=== PATIENT | female | born 1980 | race Caucasian/White ===

== ENCOUNTER 2020-03-12 17:54 | Emergency (ER) | payer SELFPAY ==
--- NOTE | 2020-03-12 20:32 | ED_ITS ---
HPI - Abdominal Pain General Chief Complaint: Abdominal Pain Stated Complaint: ?Kidney Stones Time Seen by Provider: 03/12/20 20:21 Source: patient Mode of arrival: ambulatory History of Present Illness HPI narrative: patient states for the last several weeks has been having right flank pain. Increased pain today and could not tolerating came into the emergency department. Patient states today started with nausea and vomiting. No fevers. No diarrhea. Denies trauma. Denies vaginal discharge. States of urine hesitancy MD elicited complaint: flank pain ( right-sided) Pertinent past history: kidney stones Pain Consistency: constant Severity: moderate Pain scale (0-10): 6 Quality: stabbing and aching Radiation: suprapubic Exacerbating factors: nothing Relieving factors: nothing Treatments prior to arrival: NSAIDs Related Data Previous Rx's Medication Instructions Recorded tamsulosin [Flomax] 0.4 mg PO DAILY 3 Days #3 cap 03/12/20 tramadol 25 mg PO Q6H PRN #10 tab 03/12/20 Allergies Allergy/AdvReac Type Severity Reaction Status Date / Time No Known Allergies Allergy Verified 03/12/20 20:26 Review of Systems Review of Systems Constitutional : No Weight loss, No Fever, No Chills, No Night Sweats, No Fatigue, No Malaise ENT/Mouth : No Hearing loss, No Ear Pain, No Nasal Congestion, No Sinus Pain, No Hoarseness, No sore throat, No Rhinorrhea, No Swallowing Difficulty Eyes: No Eye Pain, No Swelling, No Redness, No Foreign Body, No Discharge, No Vision Changes Cardiovascular : No Chest Pain, No SOB, No Dyspnea on Exertion, No Orthopnea, No Edema, No Palpitations Respiratory : No Cough, No Sputum, No Wheezing, No Smoke Exposure, No Dyspnea Gastrointestinal : positive for nausea and positive for vomiting No Diarrhea, No Constipation, right lower quadrant and suprapubic abdominal Pain, No Hematochezia, No Melena Genitourinary : no irregular bleeding, No Dysuria, No Urinary Frequency, No Hematuria, No Urinary Incontinence, No Urgency, No Flank Pain, No Urinary Flow Changes, No Hesitancy Musculoskeletal : No joint pain, No Myalgias, right-sided flank pain Skin : No Skin Lesions, No rash Neuro : No Weakness, No Numbness, No Paresthesias, No Loss of Consciousness, No Dizziness, No Headache Psych : No Anxiety/Panic, No Depression, No SI/HI/AH/VH, No Social Issues, Heme/Lymph: No Bruising, No Bleeding,No Lymphadenopathy Endocrine : No Polyuria, No Polydipsia, No Temperature Intolerance Physical Exam Vital Signs and I&O and Narrative: Vital Signs and I&O: Vital Signs Temp 98.6 F 03/12/20 22:00 Pulse 55 03/12/20 22:00 Resp 16 03/12/20 22:00 BP 165/90 H 03/12/20 22:00 Pulse Ox 100 03/12/20 22:00 Intake & Output 03/12/20 03/12/20 03/13/20 06:59 18:59 06:59 Weight 63.957 kg Body Mass Index 27.5 Const: Other: in mild discomfort General: cooperative and healthy appearing Orientation/consciousness: oriented to person HENMT: Head: Yes normal to inspection Eyes: Eyelids: Yes eyelids normal Pupils: Equal, round and reactive pupils present Neck: Neck: Yes normal visual inspection Chest: Chest palpation & inspection: normal inspection of the chest Resp: Effort & Inspection: normal respiratory effort Cardio: Rate: regular rate Heart sounds: no murmurs GI: Other: mild right-sided tenderness. Inspection: Yes normal to inspection Palpation (GI): no hepatosplenomegaly, no hepatomegaly and no splenomegaly Auscultation: normal bowel sounds : General: Yes CVA tenderness ( right-sided) Back/Spine/Pelvis: Back: CVA tenderness ( right-sided), No mass, No erythema and No warmth Back/spine/pelvis image: 1. Skin: General skin exam: no rashes or lesions noted Neuro: General: oriented to person Cranial nerves: Yes Equal, round and re active pupils present Extrem: General: Yes normal to inspection Psych: Appearance: grossly normal Course Reevaluation(s) Reevaluation #1: throughout hospital course patient felt much improved with IV Toradol and IV fluids. I discussed with patient need for follow-up. Patient says that she seen a urologist in the past. I do not think this patient is septic however there is some red cells in her urine which indicates possible renal stone. Patient wants to go home I discussed the patient reasons to follow-up MDM - Abdominal Pain Differential Diagnosis Differential diagnosis: Likely abdominal pain, ovarian cyst and renal colic Medical Records Attestation: I reviewed the patient's medical records. Lab Data Attestation: I reviewed the patient's lab results. Result diagrams: 03/12/20 20:43 03/12/20 20:43 Labs: Lab Results 03/12/20 03/12/20 03/12/20 Range/Units 20:42 20:43 20:43 WBC 9.4 (4.8-10.8) X10*3/uL RBC 3.90 L (4.20-5.50) X10*6/uL Hgb 13.0 (12.0-16.0) g/dl Hct 37.2 (37-47) % MCV 95.4 (80-98) fL MCH 33.3 H (27.0-33.0) pg MCHC 34.9 (31.0-35.0) g/dl RDW 11.8 (11.0-16.0) % Plt Count 246 (160-400) X10*3/uL MPV 10.3 (9.4-12.3) fL Immature Gran % (Auto) 0.3 (0.0-0.4) % Neut % (Auto) 80.7 H (45-73) % Lymph % (Auto) 10.4 L (20-40) % [place] % (Auto) 7.4 (2-11) % Eos % (Auto) 0.9 (0-4) % Baso % (Auto) 0.3 (0-2) % Neut # (Auto) 7.6 (2.0-8.3) X10*3/uL Lymph # (Auto) 1.0 L (1.2-4.9) X10*3/uL [place] # (Auto) 0.7 (0.1-1.2) X10*3/uL Eos # (Auto) 0.1 (0.0-0.4) X10*3/uL Baso # (Auto) 0.0 (0.0-0.2) X10*3/uL Abs Immat Gran (auto) 0.03 (0.00-0.03) X10*3/uL Absolute Nucleated RBC 0.000 (0.0-0.012) X10*3/uL Nucleated RBC % (auto) 0.0 (0.0-0.2) /100WBC Sodium 141 (135-145) mmol/L Potassium 4.1 (3.3-5.1) mmol/l Chloride 106 (96-108) mmol/L Carbon Dioxide 26 (22-29) mmol/L Anion Gap 13 (12-20) BUN 13 (9-16) mg/dL Creatinine 1.02 (0.5-1.4) mg/dL Estim Creat Clear Calc TNP Estimated GFR > 60 Random Glucose 98 (60-115) mg/dL Calcium 9.4 (8.4-10.2) mg/dL Urine Color DARK YELLOW Urine Appearance CLOUDY Urine pH 6.0 (5.0-8.0) Ur Specific [place] >= 1.030 H (1.005-1.025) Urine Protein 2+ H (NEG-TRACE) MG/DL Urine Glucose (UA) NEG (NEG) MG/DL Urine Ketones NEG (NEG) MG/DL Urine Blood 3+ H (NEG) Urine Nitrite NEG (NEG) Ur Leukocyte Esterase NEG (NEG) Urine RBC TNTC H (0) /HPF Urine WBC 0-2 (0-4) /HPF Ur Squamous Epith Cells TRACE /LPF Calcium Oxalate Crystal 1+ /LPF Urine Bacteria NONE /LPF Urine Yeast TRACE /HPF Urine Test NEGATIVE (NEGATIVE) Discharge Plan Discharge Clinical Impression: Calculus of kidney Patient Disposition: Home, Self-Care Instructions: Kidney Stones (ED), Flank Pain (ED) Prescriptions: New tamsulosin [Flomax] 0.4 mg capsule 0.4 mg PO DAILY 3 Days Qty: 3 RF: 0 tramadol 50 mg tablet 25 mg PO Q6H PRN (Reason: pain) Qty: 10 RF: 0 Referrals: Harrison Mcmullen RN [Registered Nurse] - 2 days Interventions: ED Discharge Assessment Last Done: 03/12/20 23:26 Discharge Date/Time: 03/12/20 23:39 [facility] Past Medical History Attestation statement: The following information was validated with the patient. Medical History (Updated 03/13/20 @ 00:01 by Christine Chung) Kidney stone Social History Social History (Updated 03/12/20 @ 20:35 by Frederic Skelton DO) Household Members: Family Alcohol intake: unknown Smoking Status: Unknown if ever smoked Use of substances other than those prescribed or required for medical reasons: No Advance Directives: No Advance Directives Information Provided: Yes
[2020-03-12 20:36] VITALS: BP 159/92; PULSE 63; RESP 16; TEMP 37; O2SAT 100
[2020-03-12 20:51] LABS: MANUAL DIFF FLAG NO
[2020-03-12 20:52] LABS: Basophils Percent Auto 0.3 % (0-2); Eosinophils Absolute Auto 0.1 X10*3/uL (0.0-0.4); Eosinophils Percent Auto 0.9 % (0-4); Hematocrit 37.2 % (37-47); Imm Gran Abs Auto 0.03 X10*3/uL (0.00-0.03); Imm Gran Pct Auto 0.3 % (0.0-0.4); Lymphocytes Percent Auto 10.4 % (20-40); Mean Corpuscular HGB Conc 34.9 g/dl (31.0-35.0); Mean Corpuscular Hemoglobin 33.3 pg (27.0-33.0); Mean Corpuscular Volume 95.4 fL (80-98); Mean Platelet Volume 10.3 fL (9.4-12.3); Monocytes Absolute Auto 0.7 X10*3/uL (0.1-1.2); Monocytes Percent Auto 7.4 % (2-11); Neutrophils Absolute Auto 7.6 X10*3/uL (2.0-8.3); Neutrophils Percent Auto 80.7 % (45-73); Platelet Count 246 X10*3/uL (160-400); Red Cell Distribution Width 11.8 % (11.0-16.0); White Blood Count 9.4 X10*3/uL (4.8-10.8)
[2020-03-12 21:00] LABS: Glucose Urine UA NEG (NEG); Leukocyte Esterase Urine NEG (NEG); Nitrite Urine NEG (NEG); Specific Gravity - Urine >= 1.030 (1.005-1.025); Urine Blood 3+ (NEG); Urine Ketones NEG (NEG); Urine Protein 2+ MG/DL (NEG-TRACE)
[2020-03-12 21:03] LABS: Appearance Urine CLOUDY; Color Urine DARK YELLOW
[2020-03-12 21:04] LABS: UPreg QC Valid YES; Urine Pregnancy NEGATIVE (NEGATIVE)
[2020-03-12 21:09] LABS: RBC Urine TNTC /HPF (0); Squamous Epithelial Cell Urine TRACE /LPF; WBC Urine 0-2 /HPF (0-4)
[2020-03-12 21:10] LABS: Calcium Oxalate Crystals Urine 1+ /LPF
[2020-03-12 21:15] LABS: Anion Gap 13 (12-20); Blood Urea Nitrogen 13 mg/dL (9-16); Calcium 9.4 mg/dL (8.4-10.2); Carbon Dioxide 26 mmol/L (22-29); Chloride 106 mmol/L (96-108); Estimated Glomerular Filt Rate > 60; Glucose Random 98 mg/dL (60-115); Potassium 4.1 mmol/l (3.3-5.1); Sodium 141 mmol/L (135-145)
[2020-03-12] MEDS: Ketorolac Tromethamine 30 MG/ML VIAL IVPUSH (21:38)
[2020-03-12] MEDS: 0.9 % Sodium Chloride 1,000 ML 999 ML IVCONT (21:40)
[2020-03-12 21:42] VITALS: BP 156/90; PULSE 84; RESP 18; TEMP 37.1; O2SAT 99; BMI 27.5
[2020-03-12 22:00] VITALS: BP 165/90; PULSE 55; RESP 16; TEMP 37; O2SAT 100
[2020-03-12] MEDS: Tamsulosin HCL 0.4 MG CAPSULE PO (23:36)
[2020-03-12] MEDS: Fluconazole 150 MG TABLET PO (23:36)
== END 2020-03-12 23:39 | disposition home or self-care (01) ==
PROVIDERS: Emergency Provider Emergency Medicine
DX: N20.0 Calculus of kidney (principal)
CPT/HCPCS: 36415; 80048; 81001; 81003; 81025; 85025; 96361; 96374; 96375; 99284; J1885

== ENCOUNTER 2020-04-26 07:23 | Emergency (ER) | payer SELFPAY ==
[2020-04-26 07:34] VITALS: BP 165/88; PULSE 75; RESP 16; TEMP 36.6; O2SAT 99; BMI 30.2
--- NOTE | 2020-04-26 07:36 | CT_ITS ---
EXAMINATION: CT ABDOMEN AND PELVIS WITHOUT CONTRAST CLINICAL INFORMATION: Right flank pain COMPARISON: None TECHNIQUE: Multidetector volumetric imaging was performed from the superior aspect of the liver through the pubic symphysis. Sagittal and coronal reformatted images were obtained on the technologist's workstation. This CT examination was performed using dose optimization techniques as appropriate, variously including the following: *Automated exposure control *Adjustment of mA and/or kV according to patient size (this includes techniques or standardized protocols for targeted exams where dose is matched to indication/reason for exam; i.e. extremities or head) *Use of iterative reconstruction technique DLP: 490 mGy-cm FINDINGS: LUNG BASES: The visualized lung bases are unremarkable. Elevated right hemidiaphragm. LIVER, GALLBLADDER, AND BILIARY TREE: The liver is normal in size, shape, and attenuation. No focal hepatic lesion or biliary ductal dilatation is present. Small stones are seen layering in the gallbladder lumen. No gallbladder wall thickening or pericholecystic fluid. PANCREAS: Unremarkable. SPLEEN: Unremarkable. ADRENAL GLANDS: Unremarkable. KIDNEYS AND URETERS: The kidneys are normal in size, shape, and attenuation. There is mild right hydroureteronephrosis. There is a 0.4 cm calculus at the right ureterovesicular junction. Multiple bilateral nonobstructing calculi are seen. On the right, there are 2 upper pole calculi measuring 0.1-0.2 cm, 7.5 cm from the posterior axillary line. On the left there are at least 3 calculi at the lower pole measuring 0.2 cm, 6.5 cm from the posterior axillary line. BLADDER: Unremarkable. GASTROINTESTINAL TRACT: The stomach is unremarkable. Normal caliber small bowel. There is no obstruction. No colonic wall thickening or inflammatory changes. No free air or free fluid. Is not definitively seen. No inflammatory changes of the cecum to suggest appendicitis. ABDOMINAL WALL: Rectus diastases. No focal abdominal wall hernia seen. LYMPH NODES: Normal. VASCULAR: Normal caliber aorta. 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 PELVIC VISCERA: The uterus and adnexa are unremarkable. OSSEOUS STRUCTURES: No acute or suspicious osseous abnormality. CT/CT abdomen pelvis wo con IMPRESSION: Mild right hydroureteronephrosis with a 0.4 cm obstructing calculus at the right ureterovesicular junction. Multiple bilateral small nonobstructing renal calculi.
--- NOTE | 2020-04-26 07:46 | ED_ITS ---
HPI - Abdominal Pain General Chief Complaint: Abdominal Pain Stated Complaint: KIDNEY STONES Time Seen by Provider: 04/26/20 07:34 Source: patient Mode of arrival: ambulatory Limitations: no limitations History of Present Illness MD elicited complaint: abdominal pain and flank pain Pertinent past history: kidney stones Onset (ago): unknown (on and off since day did not have insurance so no imaging done) Pain Consistency: intermittent Location: RLQ and R flank Severity: severe Quality: stabbing Radiation: suprapubic Migration to: no migration Exacerbating factors: nothing Relieving factors: nothing Associated symptoms: nausea Related Data Previous Rx's Medication Instructions Recorded tamsulosin [Flomax] 0.4 mg PO DAILY 3 Days #3 cap 03/12/20 tramadol 25 mg PO Q6H PRN #10 tab 03/12/20 hydrocodone-acetaminophen 1 tab PO Q6H PRN #12 tab 04/26/20 ibuprofen 600 mg PO Q6H PRN #30 tab 04/26/20 ondansetron 4 mg PO Q8H PRN #20 tab 04/26/20 prednisone 40 mg PO DAILY 5 Days #10 tab 04/26/20 tamsulosin 0.4 mg PO DAILY #5 cap 04/26/20 Allergies Allergy/AdvReac Type Severity Reaction Status Date / Time clindamycin Allergy Intermediate Hives Verified 04/26/20 07:40 Review of Systems Review of Systems Constitutional : No Weight loss, No Fever, No Chills ENT/Mouth : No sore throat, No Rhinorrhea Eyes: No Swelling, No Redness Cardiovascular : No Chest Pain, No SOB, NoEdema Respiratory : No Cough, No Sputum, No Wheezing Gastrointestinal : Positive Nausea, no Vomiting, no Diarrhea, positive abdominal Pain, No Hematochezia, No Melena Genitourinary : No Dysuria, No Urinary Frequency, No Hematuria, No Urgency Musculoskeletal : No joint pain, No Myalgias, No Joint Swelling Skin : No Skin Lesions, No rash Neuro : No Weakness, No Numbness, No Dizziness, No Headache Psych : No Anxiety/Panic, No Depression Heme/Lymph: No Bruising, No Lymphadenopathy Endocrine : No Polyuria, No Polydipsia All other systems reviewed and are negative. Physical Exam Vital Signs: Vital Signs: Last Vital Signs Temp 97.9 F 04/26/20 07:34 Pulse 75 04/26/20 07:34 Resp 16 04/26/20 07:34 BP 165/88 H 04/26/20 07:34 Pulse Ox 99 04/26/20 07:34 Body Mass Index 30.2 Appearance: Alert. Oriented X3. No acute distress. Eyes: Pupils equal, round and reactive to light. ENT: Pharynx normal. Neck: Normal inspection. Neck supple. CVS: Normal heart rate and rhythm. Pulses normal. Respiratory: No respiratory distress. Breath sounds normal. Abdomen: Soft and mild RLQ ttp Skin: Skin warm and dry. Normal skin color. Normal skin turgor. Extremities: No lower extremity edema. No calf ttp Neuro: Oriented X 3. No motor deficit. No sensory deficit. Course Course Course Narrative: can be managed as outpatient will start on steroids, tamsulosin, pain medications and refer to Urology no vomiting can tolerate PO MDM - Abdominal Pain MDM Narrative Medical decision making narrative: 39 yo female with months of lower abdominal pain and flank pain with hx of stones at this time will need labs, IVF, IV morphine for pain control, CT scan for renal colic/mass dispo per results and findings. Lab Data Result diagrams: 04/26/20 07:59 04/26/20 07:59 Labs: Lab Results 04/26/20 04/26/20 04/26/20 Range/Units 07:59 07:59 07:59 WBC 5.8 (4.8-10.8) X10*3/uL RBC 4.03 L (4.20-5.50) X10*6/uL Hgb 13.1 (12.0-16.0) g/dl Hct 38.1 (37-47) % MCV 94.5 (80-98) fL MCH 32.5 (27.0-33.0) pg MCHC 34.4 (31.0-35.0) g/dl RDW 11.6 (11.0-16.0) % Plt Count 229 (160-400) X10*3/uL MPV 10.9 (9.4-12.3) fL Immature Gran % (Auto) 0.2 (0.0-0.4) % Neut % (Auto) 62.5 (45-73) % Lymph % (Auto) 22.2 (20-40) % [place] % (Auto) 9.2 (2-11) % Eos % (Auto) 5.2 H (0-4) % Baso % (Auto) 0.7 (0-2) % Lymph # (Auto) 1.3 (1.2-4.9) X10*3/uL [place] # (Auto) 0.5 (0.1-1.2) X10*3/uL Eos # (Auto) 0.3 (0.0-0.4) X10*3/uL Baso # (Auto) 0.0 (0.0-0.2) X10*3/uL Abs Immat Gran (auto) 0.01 (0.00-0.03) X10*3/uL Absolute Neuts (auto) 3.6 (2.0-8.3) X10*3/uL Absolute Nucleated RBC 0.000 (0.0-0.012) X10*3/uL Nucleated RBC % (auto) 0.0 (0.0-0.2) /100WBC Hold Blue Top SEE NOTE Sodium 137 (135-145) mmol/L Potassium 4.1 (3.3-5.1) mmol/l Chloride 107 (96-108) mmol/L Carbon Dioxide 21 L (22-29) mmol/L Anion Gap 13 (12-20) BUN 15 (9-16) mg/dL Creatinine 0.76 (0.5-1.4) mg/dL Estim Creat Clear Calc 88.6 Estimated GFR > 60 Random Glucose 104 (60-115) mg/dL Calcium 8.8 D (8.4-10.2) mg/dL Magnesium 2.1 (1.6-2.6) mg/dL Total Bilirubin 0.7 (0.0-1.0) mg/dL Direct Bilirubin 0.2 (0.0-0.5) mg/dL AST 16 (5-31) U/L ALT 14 (0-31) U/L Alkaline Phosphatase 64 (39-117) U/L Total Protein 6.7 (6.5-8.0) g/dL Albumin 4.0 (3.5-5.0) g/dL Lipase 8 (8-78) U/L Urine Color Urine Appearance Urine pH (5.0-8.0) Ur Specific [place] (1.005-1.025) Urine Protein (NEG-TRACE) MG/DL Urine Glucose (UA) (NEG) MG/DL Urine Ketones (NEG) MG/DL Urine Blood (NEG) Urine Nitrite (NEG) Ur Leukocyte Esterase (NEG) Urine RBC (0) /HPF Urine WBC (0-4) /HPF Ur Squamous Epith Cells /LPF Urine Bacteria /LPF Urine Mucus /LPF Urine Test (NEGATIVE) 04/26/20 Range/Units 07:59 WBC (4.8-10.8) X10*3/uL RBC (4.20-5.50) X10*6/uL Hgb (12.0-16.0) g/dl Hct (37-47) % MCV (80-98) fL MCH (27.0-33.0) pg MCHC (31.0-35.0) g/dl RDW (11.0-16.0) % Plt Count (160-400) X10*3/uL MPV (9.4-12.3) fL Immature Gran % (Auto) (0.0-0.4) % Neut % (Auto) (45-73) % Lymph % (Auto) (20-40) % [place] % (Auto) (2-11) % Eos % (Auto) (0-4) % Baso % (Auto) (0-2) % Lymph # (Auto) (1.2-4.9) X10*3/uL [place] # (Auto) (0.1-1.2) X10*3/uL Eos # (Auto) (0.0-0.4) X10*3/uL Baso # (Auto) (0.0-0.2) X10*3/uL Abs Immat Gran (auto) (0.00-0.03) X10*3/uL Absolute Neuts (auto) (2.0-8.3) X10*3/uL Absolute Nucleated RBC (0.0-0.012) X10*3/uL Nucleated RBC % (auto) (0.0-0.2) /100WBC Hold Blue Top Sodium (135-145) mmol/L Potassium (3.3-5.1) mmol/l Chloride (96-108) mmol/L Carbon Dioxide (22-29) mmol/L Anion Gap (12-20) BUN (9-16) mg/dL Creatinine (0.5-1.4) mg/dL Estim Creat Clear Calc Estimated GFR Random Glucose (60-115) mg/dL Calcium (8.4-10.2) mg/dL Magnesium (1.6-2.6) mg/dL Total Bilirubin (0.0-1.0) mg/dL Direct Bilirubin (0.0-0.5) mg/dL AST (5-31) U/L ALT (0-31) U/L Alkaline Phosphatase (39-117) U/L Total Protein (6.5-8.0) g/dL Albumin (3.5-5.0) g/dL Lipase (8-78) U/L Urine Color YELLOW Urine Appearance CLEAR Urine pH 6.0 (5.0-8.0) Ur Specific [place] 1.010 (1.005-1.025) Urine Protein NEG (NEG-TRACE) MG/DL Urine Glucose (UA) 250 H (NEG) MG/DL Urine Ketones NEG (NEG) MG/DL Urine Blood 2+ H (NEG) Urine Nitrite NEG (NEG) Ur Leukocyte Esterase NEG (NEG) Urine RBC 1-4 (0) /HPF Urine WBC 1-4 (0-4) /HPF Ur Squamous Epith Cells TRACE /LPF Urine Bacteria NONE /LPF Urine Mucus TRACE /LPF Urine Test NEGATIVE (NEGATIVE) Discharge Plan Discharge Clinical Impression: Calculus of kidney Patient Disposition: Home, Self-Care Instructions: Renal Colic (ED) Additional Instructions: return to ED for any worsening symptoms or concerns CT scan KIDNEYS AND URETERS: The kidneys are normal in size, shape, and attenuation. There is mild right hydroureteronephrosis. There is a 0.4 cm calculus at the right ureterovesicular junction. Multiple bilateral nonobstructing calculi are seen. On the right, there are 2 upper pole calculi measuring 0.1-0.2 cm, 7.5 cm from the posterior axillary line. On the left there are at least 3 calculi at the lower pole measuring 0.2 cm, 6.5 cm from the posterior axillary line. Prescriptions: New hydrocodone-acetaminophen 5-325 mg tablet 1 tab PO Q6H PRN (Reason: pain) Qty: 12 RF: 0 prednisone 20 mg tablet 40 mg PO DAILY 5 Days Qty: 10 RF: 0 ibuprofen 600 mg tablet 600 mg PO Q6H PRN (Reason: pain) Qty: 30 RF: 0 ondansetron 4 mg tablet,disintegrating 4 mg PO Q8H PRN (Reason: nausea and vomiting) Qty: 20 RF: 0 tamsulosin 0.4 mg capsule 0.4 mg PO DAILY Qty: 5 RF: 0 No Action tamsulosin [Flomax] 0.4 mg capsule 0.4 mg PO DAILY 3 Days Qty: 3 RF: 0 tramadol 50 mg tablet 25 mg PO Q6H PRN (Reason: pain) Qty: 10 RF: 0 Referrals: Willard Vale MD [Physician] - 1 week (if not better) Stand Alone Forms: Work/School Release [facility] Past Medical History Attestation statement: The following information was validated with the patient. Medical History Kidney stone Surgical History Hx of tonsillectomy S/P ACL repair Social History Social History Household Members: Family Alcohol intake: unknown Smoking Status: Unknown if ever smoked Advance Directives: No Advance Directives Information Provided: Yes
[2020-04-26] MEDS: ondansetron HCL 4 MG/2 ML VIAL IVPUSH (08:03)
[2020-04-26] MEDS: 0.9 % Sodium Chloride 1,000 ML 999 ML IVCONT (08:03)
[2020-04-26] MEDS: Ketorolac Tromethamine 30 MG/ML VIAL IVPUSH (08:03)
[2020-04-26 08:05] LABS: MANUAL DIFF FLAG NO
[2020-04-26 08:13] LABS: Glucose Urine UA 250 MG/DL (NEG); Leukocyte Esterase Urine NEG (NEG); Nitrite Urine NEG (NEG); Urine Blood 2+ (NEG); Urine Ketones NEG (NEG); Urine Protein NEG (NEG-TRACE)
[2020-04-26 08:15] LABS: Basophils Percent Auto 0.7 % (0-2); Eosinophils Absolute Auto 0.3 X10*3/uL (0.0-0.4); Eosinophils Percent Auto 5.2 % (0-4); Hematocrit 38.1 % (37-47); Hemoglobin 13.1 g/dl (12.0-16.0); Imm Gran Abs Auto 0.01 X10*3/uL (0.00-0.03); Imm Gran Pct Auto 0.2 % (0.0-0.4); Lymphocytes Absolute Auto 1.3 X10*3/uL (1.2-4.9); Lymphocytes Percent Auto 22.2 % (20-40); Mean Corpuscular HGB Conc 34.4 g/dl (31.0-35.0); Mean Corpuscular Hemoglobin 32.5 pg (27.0-33.0); Mean Corpuscular Volume 94.5 fL (80-98); Mean Platelet Volume 10.9 fL (9.4-12.3); Monocytes Absolute Auto 0.5 X10*3/uL (0.1-1.2); Monocytes Percent Auto 9.2 % (2-11); Neutrophils Absolute Auto 3.6 X10*3/uL (2.0-8.3); Neutrophils Percent Auto 62.5 % (45-73); Platelet Count 229 X10*3/uL (160-400); Red Blood Count 4.03 X10*6/uL (4.20-5.50); Red Cell Distribution Width 11.6 % (11.0-16.0); White Blood Count 5.8 X10*3/uL (4.8-10.8)
--- NOTE | 2020-04-26 08:15 | PC.NURSE ---
pt medicated for pain refusing morphine-Dr Tierney aware urine and labs sent
[2020-04-26 08:16] LABS: Appearance Urine CLEAR; Color Urine YELLOW
[2020-04-26 08:18] LABS: UPreg QC Valid YES; Urine Pregnancy NEGATIVE (NEGATIVE)
[2020-04-26 08:29] LABS: Mucus Urine TRACE /LPF; Squamous Epithelial Cell Urine TRACE /LPF
[2020-04-26 08:30] LABS: Alanine Aminotransferase 14 U/L (0-31); Alkaline Phosphatase 64 U/L (39-117); Anion Gap 13 (12-20); Aspartate Amino Transferase 16 U/L (5-31); Bilirubin Direct 0.2 mg/dL (0.0-0.5); Bilirubin Total 0.7 mg/dL (0.0-1.0); Blood Urea Nitrogen 15 mg/dL (9-16); Calcium 8.8 mg/dL (8.4-10.2); Carbon Dioxide 21 mmol/L (22-29); Chloride 107 mmol/L (96-108); Creatinine Clr Calc Pharmacy 88.6; Estimated Glomerular Filt Rate > 60; Glucose Random 104 mg/dL (60-115); Lipase 8 U/L (8-78); Magnesium 2.1 mg/dL (1.6-2.6); Potassium 4.1 mmol/l (3.3-5.1); Sodium 137 mmol/L (135-145); Total Protein 6.7 g/dL (6.5-8.0)
[2020-04-26] MEDS: predniSONE 20 MG TABLET 40 MG PO (10:39)
== END 2020-04-26 10:43 | disposition home or self-care (01) ==
PROVIDERS: Emergency Provider Emergency Medicine
DX: N20.0 Calculus of kidney (principal); R10.31 Right lower quadrant pain; Z79.899 Other long term (current) drug therapy
CPT/HCPCS: 36415; 74176; 80048; 80076; 81001; 81025; 83690; 83735; 85025; 96361; 96374; 96375; 99283; 99284; J1885; J2405

== ENCOUNTER 2023-08-22 07:20 | Outpatient (AMB) | payer OTHER, SELFPAY ==
[2023-08-22 07:30] VITALS: BP 156/84; BMI 28.1
--- NOTE | 2023-08-22 07:30 | A.OFFPC_ITS ---
Vital Signs 08/22/23 07:30 08/22/23 08:01 Height 5 ft Weight 144 lb BMI 28.1 BP 156/84 H 150/80 H Blood Pressure Location Lt brachial Lt brachial Position Sitting Sitting Intake Visit Reasons: EPIDEMIOLOGY INTERN Request PE Intake Note: new patient, physical request Community Outreach Director Required: No Accompanied by: Self / Same As Patient Allergies clindamycin Allergy (Intermediate, Verified 08/22/23 07:40) Hives Medication List - Last Reconciled 08/22/23 by Jewels Hernandez MD No Known Home Meds Tobacco use date assessed: 08/22/23 Dental Screening Dental Screen Date: 08/22/23 Did you have a dental visit in the last 12 months?: Yes Did you have a dental problem in the last 6 months where you did not have access to dental care?: No Was dental information given to patient?: Patient has dentist HPI HPI Comments History of Present Illness Details This is a 42-year-old female that comes for her physical exam as new patient. Last mammogram was about a year ago and she already has an appointment scheduled. Last Pap smear was less than 3 years ago. Complains of motion sickness triggered by being on about and will go to a cruise soon. No chest pain or shortness of breath. [facility] Medical History (Updated 08/22/23 @ 08:04 by Jewels Hernandez MD) Kidney stone Surgical History (Updated 08/22/23 @ 08:03 by Jewels Hernandez MD) Omphalocele History of bilateral breast reduction surgery S/P ACL repair Hx of tonsillectomy Family History Mother No problems noted. Father No problems noted. Social History Household Members: Family Housing: House Alcohol intake: current Alcohol intake frequency: a few times a month Alcohol type: hard liquor Patient Tobacco Use Status: Never used Tobacco e-Cigarette/Vaping Use: Never Used Second Hand Smoke Exposure: Yes service: No Current occupational status: employed Current occupational exposures/hazards: No Cognitive needs: No Hearing needs: No Vision needs: Yes Questionnaire PHQ-9 Over the last 2 weeks, how often have you been bothered by any of the following problems? 1. Little interest or pleasure in doing things: not at all 2. Feeling down, depressed, or hopeless: not at all 3. Trouble falling or staying asleep, or sleeping too much: not at all 4. Feeling tired or having little energy: not at all 5. Poor appetite or overeating: not at all 6. Feeling bad about yourself - or that you are a failure or have let yourself or your family down: not at all 7. Trouble concentrating on things, such as reading the newspaper or watching television: not at all 8. Moving or speaking so slowly that other people could have noticed. Or the opp osite - being so fidgety or restless that you have been moving around a lot more than usual: not at all 9. Thoughts that you would be better off or of hurting yourself in some way: not at all Total score: 0 Depression Screening Interpretation: Negative Depression Screening Done: Yes 63382 - PHQ-9 Billing: Yes Source: Developed by Drs. Amish Valdes, Marimar Mcguire, Joe Smith and colleagues, with an educational wild from [employer]. Thrive Questionnaire Date Thrive assessed: 08/22/23 I am a: Patient What is your living situation today?: I have a steady place to live Within the past 12 months, did the food you bought not last and you didn't have the money to get more?: Never true Within the past 12 months, did you worry whether your food would run out before you got money to buy more?: Never true Do you have trouble paying for medicines?: No Do you have trouble getting transportation to medical appointments?: No Do you have trouble paying your heating and electricity bill?: No Do you have trouble taking care of your child, family member or friend?: No Do you have trouble with day-to-day activities such as bathing, preparing meals, shopping, managing finances, etc.?: No Are you currently unemployed and looking for a job?: No Are you interested in more education?: No Please select the resources that you would like help with: None Currently or been in a relationship where the following occur: no concerns reported THRIVE Score: 0 AUDIT C Alcohol Use Questionnaire (AUDIT-C) 1. How often do you have a drink containing alcohol?: 2-4 times a month 2. How many drinks containing alcohol do you have on a typical day when you are drinking?: 1 or 2 3. How often do you have six or more drinks on one occasion?: Never Total Score: 2 MARGARITO-7 AMB Questionnaire MARGARITO-7 Date MARGARITO - 7 assessed: 08/22/23 Feeling nervous, anxious, or on edge: 0 = Not at all Not being able to stop or control worryin = Not at all Worrying too much about different things: 0 = Not at all Trouble relaxin = Not at all Being so restless that it is hard to sit still: 0 = Not at all Becoming easily annoyed or irritable: 0 = Not at all Feeling afraid as if something awful might happen: 0 = Not at all Total MARGARITO-7 score (0-4 normal; 5-9 mild; 10-14 moderate; 15-21 severe): 0 Source: Developed by Drs. Amish Valdes, Marimar Mcguire, Joe Smith and colleagues, with an educational wild from [employer]. MARGARITO-7 Assessment Billing MARGARITO-7 Assessment Tool: MARGARITO-7 Assessment 85712 Review of Systems Const All systems reviewed & are unremarkable except as noted in HPI and below Eyes Reports no additional complaints, Denies change in vision and Denies other visual disturbances Card Denies chest pain at rest, Denies chest pain with activity, Denies edema, Denies irregular heart rhythm, Denies claudication, Denies dyspnea, Denies dyspnea on exertion, Denies orthopnea, Denies paroxysmal nocturnal dyspnea and Denies slow heart rate Resp Denies cough, Denies dyspnea and Denies dyspnea on exertion GI Denies abdominal pain, Denies change in bowel habits, Denies excessive flatus, Denies nausea and Denies vomiting Denies urinary incontinence, Denies urinary hesitancy and Denies urinary urgency Musc Denies abnormal gait, Denies atrophy, Denies deformity and Denies limited range of motion Skin/Breast Denies bleeding lesions, Denies changing lesions and Denies rash Neuro Denies abnormal gait and Denies lack of coordination Physical exam (Primary Care) Vital Signs: Last Vital Signs BP 150/80 H 08/22/23 08:01 BMI result Body Mass Index 28.1 Tobacco/Smoking Status: Tobacco use Status Tobacco use date assessed 08/22/23 08/22/23 07:37 Patient Tobacco Use Status Never used Tobacco 08/22/23 07:40 e-Cigarette/Vaping Use Never Used 08/22/23 07:40 PHQ-9: PHQ-9 Score PHQ-9: Total score 0 08/22/23 08:04 Depression Screening Interpretation: Negative Thrive Assessment: Date of Thrive Assessment Date Thrive assessed 08/22/23 08/22/23 07:42 Currently or been in a relationship where the following occur: no concerns reported Const Orientation/consciousness: patient oriented x3 HENMT Head: Yes normal to inspection, Yes normocephalic and Yes atraumatic Ears: external ears normal General nose exam: Normal external nose present and No nasal discharge present Face and sinus: Yes sinuses nontender Mouth: lip normal Eyes General: appearance normal, both eyes and all related structures Eyelids: Yes eyelids normal Conjunctivae: conjunctivae normal Neck Neck: Yes normal visual inspection and Yes supple Resp Effort & Inspection: normal respiratory effort Auscultation: clear to auscultation bilaterally Cardio Jugular venous distension: no JVD Rate: regular rate Rhythm: regular rhythm Heart sounds: S1 normal heart sound present and S2 normal heart sound present GI Inspection: Yes normal to inspection Palpation (GI): Soft to palpation and nontender Auscultation: normal bowel sounds Skin General skin exam: no rashes or lesions noted Neuro General: patient oriented x3 and no focal motor deficits Extrem General: Yes full ROM Psych Appearance: grossly normal Assessment and Plan Assessment & Plan (1) Physical exam: Code(s): Z00.00 - Encounter for general adult medical examination without abnormal findings Plan: Repeat in a year. Orders: Orders Lipid Panel Today Z00.00 - Encounter for general adult medical examination without abnormal findings Comprehensive [place]. Panel Fast Today Z00.00 - Encounter for general adult medical examination without abnormal findings Medications: New scopolamine base 1 patch transdermal Q3D PRN 4 ea 0RF nausea and vomiting 8 days T75.3XXA - Motion sickness, initial encounter Coding Level of Care Code New Pt Prev Care 40-64y(91358) Diagnoses Physical exam Z00.00 Additional Codes MARGARITO-7 Assessment Billing - MARGARITO-7 Assessment Tool: MARGARITO-7 Assessment 15517 ([id number]) Time Spent (min) 33
[2023-08-22 08:01] VITALS: BP 150/80
== END 2023-08-22 08:02 | disposition home or self-care (01) ==
PROVIDERS: PCP Internal Medicine; Visit Provider Internal Medicine
DX: Z00.00 Encounter for general adult medical examination without abnormal findings (principal)
CPT/HCPCS: 99386

== ENCOUNTER 2023-08-22 08:11 | Outpatient (REF) | payer OTHER, SELFPAY ==
[2023-08-22 09:10] LABS: Alanine Aminotransferase 17 U/L (0-31); Albumin Level 4.4 g/dL (3.5-5.0); Alkaline Phosphatase 62 U/L (39-117); Anion Gap 11 (12-20); Aspartate Amino Transferase 16 U/L (5-31); Bilirubin Total 0.9 mg/dL (0.0-1.0); Blood Urea Nitrogen 14 mg/dL (9-16); Calcium 9.5 mg/dL (8.4-10.2); Carbon Dioxide 25 mmol/L (22-29); Chloride 110 mmol/L (96-108); Cholesterol 172 mg/dL (<200); Estimated Glomerular Filt Rate > 60; Glucose Fasting 93 mg/dL (60-99); HDL Cholesterol 62 mg/dL (>40); LDL Cholesterol Calculated 99 mg/dL (<100); Potassium 4.3 mmol/L (3.3-5.1); Sodium 142 mmol/L (135-145); Total Protein 7.2 g/dL (6.5-8.0); Triglycerides 58 mg/dL (<150)
== END 2023-08-22 08:12 | disposition home or self-care (01) ==
LOC: HO.LAB 08:11
PROVIDERS: PCP Internal Medicine; Visit Provider Internal Medicine
DX: Z00.00 Encounter for general adult medical examination without abnormal findings (principal); Z13.6 Encounter for screening for cardiovascular disorders
CPT/HCPCS: 36415; 80053; 80061

== ENCOUNTER 2023-10-29 08:13 | Outpatient (AMB) | payer OTHER, SELFPAY ==
[2023-10-29 08:17] VITALS: BP 130/100; PULSE 83; O2SAT 98; BMI 28.7
--- NOTE | 2023-10-29 08:17 | AM.OFFWIN_ITS ---
Intake Vital Signs 10/29/23 08:17 Height 5 ft Weight 147 lb BMI 28.7 BP 130/100 H Blood Pressure Location Lt brachial Position Sitting Pulse 83 Pulse Source Pulse Oximeter Pulse Oximetry (%) 98 Oxygen Delivery Method Room Air Intake Visit Reasons: EP bug bite lft leg swollen Intake Note: Patient here for swelling on left leg which started Sunday with just feeling sore and now it is very sensitive red and swollen. Patient Tobacco Use Status: Never used Tobacco Allergies clindamycin Allergy (Intermediate, Verified 10/29/23 08:22) Hives Do you need a note to return to daycare/school/sports/work: No HPI HPI Comments History of Present Illness Details This is a 42-year-old female who presented to the walk-in clinic com plaining of atraumatic left leg pain/swelling x 2 days. She states she first noticed some mild pain while getting a pedicure two days ago; however, the pain progressively worsened and she noticed a small area of erythema/swelling on the medial aspect of her left knee. She denies any known trauma or injury. She denies any recent travel or surgeries. She denies any known bug or tick bites. She denies utilizing any estrogen products. She denies any recent medical procedures. She denies chest pain or shortness of breath. She is otherwise feeling well. COUNT INCLUDES THE [facility] Medical History (Updated 09/09/23 @ 09:25 by Jewels Hernandez MD) Kidney stone Surgical History (Updated 08/22/23 @ 08:03 by Jewels Hernandez MD) Omphalocele History of bilateral breast reduction surgery S/P ACL repair Hx of tonsillectomy Family History Mother No problems noted. Father No problems noted. Social History Household Members: Family Housing: House Alcohol intake: current Alcohol intake frequency: a few times a month Alcohol type: hard liquor Patient Tobacco Use Status: Never used Tobacco e-Cigarette/Vaping Use: Never Used Second Hand Smoke Exposure: Yes service: No Current occupational status: employed Current occupational exposures/hazards: No Cognitive needs: No Hearing needs: No Vision needs: Yes Review of Systems Const All systems reviewed & are unremarkable except as noted in HPI and below Reports no additional complaints Eyes Reports no additional complaints ENT Reports no additional complaints Card Reports no additional complaints Resp Reports no additional complaints GI Reports no additional complaints Reports no additional complaints Musc Reports no additional complaints Skin/Breast Reports system reviewed and no additional complaints, except as documented Neuro Reports no additional complaints Psych Reports no additional complaints Endo Reports no additional complaints Garcia/Lymph Reports no additional complaints Aller/Immun Reports no additional complaints Physical Exam Vital Signs: Last Vital Signs Pulse 83 10/29/23 08:17 BP 130/100 H 10/29/23 08:17 Pulse Ox 98 10/29/23 08:17 Oxygen Delivery Method Room Air 10/29/23 08:17 BMI result Body Mass Index 28.7 Const Other: Vital signs reviewed. Constitutional: Non-toxic appearing. No acute distress. Well-developed and well-nourished. HEENT: Normocephalic and atraumatic. Skin: Warm and dry. No rashes or lesions noted. There is a 4in x 2in area of erythema and swelling to the medial aspect of her left knee, which is slightly indurated although not fluctuant. Neck: Full and painless range of motion. No cervical lymphadenopathy. Cardio: Regular rate. No JVD. There is trace non-pitting edema of the left lower extremity. Pulmonary: No respiratory distress. No accessory muscle usage. Gastrointestinal: Soft, nontender, and nondistended in all 4 quadrants. Musculoskeletal: Normal range of motion in joints throughout the body. No deformity or other signs of injury. Neuro: Alert and oriented x4. Cranial nerves 2-12 grossly intact. No focal deficits appreciated. Psych: Normal mood and affect. Assessment & Plan Assessment & Plan (1) Swelling of left lower extremity: Code(s): M79.89 - Other specified soft tissue disorders Plan: 42-year-old female who presented to the walk-in clinic complaining of atraumatic left leg pain/swelling x 2 days. Differential diagnosis includes cellulitis versus DVT versus less likely superficial thrombophlebitis given no recent medical procedures. Stat US venous duplex of the left lower extremity ordered to rule out DVT. Patient given prescription for PO cefadroxil 500mg twice daily x 7 days to treat likely cellulitis. Recommended symptomatic management including ibuprofen as needed for pain/swelling, alternating heat/ice to the area, and elevation of the extremity. Patient advised to follow up here or proceed to the emergency room for persistent or worsening symptoms or if she were to develop pu rulent drainage, streaking, worsening erythema, fevers/chills, or chest pain/shortness of breath. Patient verbalized understanding and is agreeable with the plan. Orders: Orders US venous duplex LE LT Today R22.42 - Localized swelling, mass and lump, left lower limb Medications: New cefadroxil 500 mg PO BID 14 caps 0RF Coding Level of Care Code Est Pt Level 3 (46497) Diagnoses Swelling of left lower extremity M79.89
== END 2023-10-29 09:13 | disposition home or self-care (01) ==
PROVIDERS: PCP Internal Medicine; Visit Provider Physician Assistant Medical
DX: M79.89 Other specified soft tissue disorders (principal)
CPT/HCPCS: 99213

== ENCOUNTER 2023-10-29 09:17 | Outpatient (REF) | payer OTHER, SELFPAY ==
--- NOTE | ~2023-10-29 | US_ITS ---
EXAMINATION: US VENOUS ULTRASOUND WITH DOPPLER LOWER EXTREMITY, LEFT CLINICAL INFORMATION: Left lower extremity pain and swelling COMPARISON: None available. TECHNIQUE: Ultrasound of the deep veins is performed from the hip to the calf with compression sonography and color and pulse Doppler assessment. Spectral analysis with color-flow imaging is performed. FINDINGS: There is normal venous compression and respiratory variation and augmented flow. The visualized common femoral vein, superficial femoral vein, profunda femoral vein, popliteal vein, and the trifurcation region shows no evidence of deep venous thrombosis. There is no significant popliteal fossa cyst. The contralateral right common femoral vein appears normal. If the patient's symptoms persist, followup ultrasound in 5 days 7 days might be of value to exclude proximal propagation from a non-visualized calf vein. US/US venous duplex LE LT IMPRESSION: No DVT demonstrated in the left lower extremity.
== END 2023-10-29 09:18 | disposition home or self-care (01) ==
LOC: HO.HMGCX 09:17
PROVIDERS: PCP Internal Medicine; Visit Provider Physician Assistant Medical
DX: R22.42 Localized swelling, mass and lump, left lower limb (principal)
CPT/HCPCS: 93971

== ENCOUNTER 2023-12-05 17:12 | Outpatient (AMB) | payer OTHER, SELFPAY ==
[2023-12-05 17:24] VITALS: BP 140/90; BMI 28.9
--- NOTE | 2023-12-05 17:24 | MHC.PC.OV ---
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 She came to see me and I order an ultrasound ruling out DVT and gave her antibiotics with complete relief. It used to be red but now is only swollen. Ultrasound of the leg will be order again to rule out a DVT. If it is negative she is aware that she will have to use compression stockings as needed. Blood pressure borderline normal to elevated and will be recheck in 3 weeks by nurse navigator. No chest pain or shortness on breath. She has a sore throat in the morning and at night but no fever, lymphadenopathy or night sweats. This is most likely to the AC. [facility] Medical History (Updated 12/05/23 @ 17:41 by Jewels Hernandez MD) Kidney stone Surgical History Omphalocele History of bilateral breast reduction surgery S/P ACL repair Hx of tonsillectomy Family History Mother No problems noted. Father No problems noted. Social History Household Members: Family Housing: House Alcohol intake: current Alcohol intake frequency: a few times a month Alcohol type: hard liquor Patient Tobacco Use Status: Never used Tobacco e-Cigarette/Vaping Use: Never Used Second Hand Smoke Exposure: Yes service: No Current occupational status: employed Current occupational exposures/hazards: No Cognitive needs: No Hearing needs: No Vision needs: Yes Questionnaire Thrive Questionnaire Date Thrive assessed: 08/22/23 MARGARITO-7 AMB Questionnaire MARGARITO-7 Date MARGARITO - 7 assessed: 08/22/23 Source: Developed by Drs. Amish Valdes, Marimar Mcguire, Joe Smith and colleagues, with an educational wild from [employer]. Review of Systems Const All systems reviewed & are unremarkable except as noted in HPI and below Card Denies chest pain at rest, Denies chest pain with activity, Denies edema, Denies irregular heart rhythm, Denies claudication, Denies dyspnea, Denies dyspnea on exertion, Denies orthopnea, Denies paroxysmal nocturnal dyspnea and Denies slow heart rate Resp Denies cough, Denies dyspnea and Denies dyspnea on exertion Musc Reports arthralgias and Reports joint swelling Physical exam (Primary Care) Vital Signs: Last Vital Signs BP 140/90 H 12/05/23 17:24 BMI result Body Mass Index 28.9 Tobacco/Smoking Status: Tobacco use Status Tobacco use date assessed 08/22/23 12/05/23 17:27 Patient Tobacco Use Status Never used Tobacco 12/05/23 17:27 e-Cigarette/Vaping Use Never Used 12/05/23 17:27 Thrive Assessment: Date of Thrive Assessment Date Thrive assessed 08/22/23 12/05/23 17:27 Resp Effort & Inspection: normal respiratory effort Auscultation: clear to auscultation bilaterally Cardio Jugular venous distension: no JVD Rate: regular rate Rhythm: regular rhythm Heart sounds: S1 normal heart sound present and S2 normal heart sound present Extrem General: Yes full ROM Left lower extremity: lower leg Details: non-pitting edema Details: 1+ Assessment and Plan Assessment & Plan (1) Essential hypertension: Code(s): I10 - Essential (primary) hypertension Plan: Continue losartan. Recheck blood pressure with nurse navigator in 3 weeks. (2) Left leg pain: Code(s): M79.605 - Pain in left leg Plan: Ultrasound ordered. Orders: Orders US venous duplex LE LT Today M79.605 - Pain in left leg Coding Level of Care Code Est Pt Level 3 (89155) Complex EM visit Add On G2211 Diagnoses Essential hypertension I10 Left leg pain M79.605 Time Spent (min) 17
== END 2023-12-05 17:43 | disposition home or self-care (01) ==
PROVIDERS: PCP Internal Medicine; Visit Provider Internal Medicine
DX: I10 Essential (primary) hypertension (principal); M79.605 Pain in left leg
CPT/HCPCS: 99213; G2211

== ENCOUNTER 2023-12-06 09:24 | Outpatient (REF) | payer OTHER, SELFPAY ==
--- NOTE | ~2023-12-06 | US_ITS ---
EXAMINATION: US VENOUS ULTRASOUND WITH DOPPLER LOWER EXTREMITY, LEFT CLINICAL INFORMATION: Left lower extremity edema COMPARISON: None available. TECHNIQUE: Ultrasound of the deep veins is performed from the hip to the calf with compression sonography and color and pulse Doppler assessment. Spectral analysis with color-flow imaging is performed. FINDINGS: There is normal venous compression and respiratory variation and augmented flow. The visualized common femoral vein, superficial femoral vein, profunda femoral vein, popliteal vein, and the trifurcation region shows no evidence of deep venous thrombosis. There is no significant popliteal fossa cyst. If the patient's symptoms persist, followup ultrasound in 5 days 7 days might be of value to exclude proximal propagation from a non-visualized calf vein. US/US venous duplex LE IMPRESSION: No DVT demonstrated in the left lower extremity.
== END 2023-12-06 09:25 | disposition home or self-care (01) ==
LOC: HO.US 09:24
PROVIDERS: Visit Provider Internal Medicine
DX: M79.605 Pain in left leg (principal); R60.0 Localized edema
CPT/HCPCS: 93971

== ENCOUNTER 2024-01-01 08:05 | Outpatient (AMB) | payer OTHER, SELFPAY ==
[2024-01-01 08:08] VITALS: BP 146/88; BMI 28.7
--- NOTE | 2024-01-01 08:08 | MHC.PC.OV ---
Vital Signs 01/01/24 08:08 01/01/24 08:34 Height 5 ft Weight 147 lb BMI 28.7 BP 146/88 H 150/90 H Blood Pressure Location Lt brachial Lt brachial Position Sitting Sitting Intake Visit Reasons: Swollen left leg Intake Note: Patient here for a follow up leg swelling and bp Nurse Practitioner Adult Required: No Accompanied by: Self / Same As Patient Allergies clindamycin Allergy (Intermediate, Verified 01/01/24 08:17) Hives Medication List - Last Reconciled 01/01/24 by Jewels Hernandez MD furosemide 20 mg PO DAILY 30 days losartan 25 mg PO DAILY 90 days Tobacco use date assessed: 08/22/23 Dental Screening Dental Screen Date: 08/22/23 HPI HPI Comments History of Present Illness Details This is a 43-year-old female with hypertension that still complains of bilateral lower leg edema aggravated by heat and standing for prolonged periods of time. Use furosemide when he severe. Duplex was negative for DVT. Was recommended to use compression stockings as needed. Blood pressure elevated and she did took her losartan. Losartan will be increased to 25 mg and blood pressure will be recheck in 3 weeks by nurse navigator. [facility] Medical History (Updated 01/01/24 @ 08:32 by Jewels Hernandez MD) Kidney stone Surgical History Omphalocele History of bilateral breast reduction surgery S/P ACL repair Hx of tonsillectomy Family History Mother No problems noted. Father No problems noted. Social History Household Members: Family Housing: House Alcohol intake: current Alcohol intake frequency: a few times a month Alcohol type: hard liquor Patient Tobacco Use Status: Never used Tobacco e-Cigarette/Vaping Use: Never Used Second Hand Smoke Exposure: Yes service: No Current occupational status: employed Current occupational exposures/hazards: No Cognitive needs: No Hearing needs: No Vision needs: Yes Questionnaire Thrive Questionnaire Date Thrive assessed: 08/22/23 MARGARITO-7 AMB Questionnaire MARGARITO-7 Date MARGARITO - 7 assessed: 08/22/23 Source: Developed by Drs. Amish L. LucioMarimar thompson, Joe Smith and colleagues, with an educational wild from [employer]. Review of Systems Const All systems reviewed & are unremarkable except as noted in HPI and below Card Denies chest pain at rest, Denies chest pain with activity, Denies edema, Denies irregular heart rhythm, Denies claudication, Denies dyspnea, Denies dyspnea on exertion, Denies orthopnea, Denies paroxysmal nocturnal dyspnea and Denies slow heart rate Resp Denies cough, Denies dyspnea and Denies dyspnea on exertion GI Denies abdominal pain, Denies change in bowel habits, Denies excessive flatus, Denies nausea and Denies vomiting Physical exam (Primary Care) Vital Signs: Last Vital Signs BP 146/88 H 01/01/24 08:08 BMI result Body Mass Index 28.7 Tobacco/Smoking Status: Tobacco use Status Tobacco use date assessed 08/22/23 01/01/24 08:13 Patient Tobacco Use Status Never used Tobacco 01/01/24 08:13 e-Cigarette/Vaping Use Never Used 01/01/24 08:13 Thrive Assessment: Date of Thrive Assessment Date Thrive assessed 08/22/23 01/01/24 08:13 Resp Effort & Inspection: normal respiratory effort Auscultation: clear to auscultation bilaterally Cardio Jugular venous distension: no JVD Rate: regular rate Rhythm: regular rhythm Heart sounds: S1 normal heart sound present and S2 normal heart sound present Extrem General: Yes full ROM Right lower extremity: lower leg Details: pitting edema Details: 1+ Left lower extremity: lower leg Details: pitting edema Details: 1+ Assessment and Plan Assessment & Plan (1) Essential hypertension: Code(s): I10 - Essential (primary) hypertension Plan: Increase losartan to 50 mg. Recheck blood pressure with nurse navigator in 3 weeks. Blood pressure goal is equal or less than 130/80. (2) Leg edema: Code(s): R60.0 - Localized edema Plan: Use compression stockings and furosemide as needed. Medications: New losartan 50 mg PO DAILY 90 days 90 tabs 0RF I10 - Essential (primary) hypertension Discontinued losartan Discontinued Reason: Patient Completed Course 25 mg PO DAILY 90 days 90 tabs 0RF I10 - Essential (primary) hypertension Coding Level of Care Code Est Pt Level 3 (91831) Complex EM visit Add On G2211 Diagnoses Essential hypertension I10 Leg edema R60.0 Time Spent (min) 19
[2024-01-01 08:34] VITALS: BP 150/90
== END 2024-01-01 08:28 | disposition home or self-care (01) ==
PROVIDERS: PCP Internal Medicine; Visit Provider Internal Medicine
DX: I10 Essential (primary) hypertension (principal); R60.0 Localized edema
CPT/HCPCS: 99213

== ENCOUNTER 2024-12-17 09:07 | Outpatient (AMB) | payer OTHER, SELFPAY ==
--- NOTE | 2024-12-17 09:15 | MHC.OFFWIV ---
Intake Vital Signs 12/17/24 09:16 Height 5 ft Weight 137 lb BMI 26.8 BP 152/90 H Blood Pressure Location Rt brachial Position Sitting Pulse 86 Pulse Source Pulse Oximeter Temp 97.8 F Pulse Oximetry (%) 98 Oxygen Delivery Method Room Air Oxygen Flow Rate 97.8 Intake Visit Reasons: EP Sinus congestion Intake Note: presents with sinus pressure and congestion and ears blocked for 3 days Patient Tobacco Use Status: Never used Tobacco Allergies clindamycin Allergy (Intermediate, Verified 12/17/24 09:19) Hives Do you need a note to return to daycare/school/sports/work: No HPI HPI Comments History of Present Illness Details History of Present Illness - The patient is a 44-year-old female presenting with sinus congestion and pressure. - Symptoms began four days ago with a sensation of chest heaviness and throat dryness. - Progressed to severe facial pressure and ear discomfort, described as feeling like the brain is going to explode. - No significant cough, but nasal discharge is present without discoloration. - History of recurrent sinus infections and a previous diagnosis of Influenza A approximately one year ago. - Currently taking losartan for hypertension and Mucinex for symptom relief. - No smoking history and no recent exposure to sick contacts. - She denies fever, chills, CP, SOB, abd pain, n/v/d. Physical Exam General: Cooperative, healthy appearing, comfortable, no acute distress and well developed Head: Normal to inspection Ears: Hearing grossly normal bilaterally. No tragus or mastoid tenderness noted. Auditory canals clear bilaterally. TM's normal, not bulging. No fluid noted. Nose: Normal external nose present. Moist mucosa. Turbinates normal bilaterally, not boggy. Face and sinus: Tenderness to palpation of the frontal and maxillary sinuses bilaterally. Neck: Normal visual inspection and Yes full ROM. No lymphadenopathy noted. Respiratory: Normal respiratory effort and able to speak in complete sentences. Clear to auscultation bilaterally Cardiovascular: Regular rate and rhythm. Normal S1 and S2 GI: Normal to inspection. Soft to palpation and nontender, nondistended. No guarding noted. Skin: No rashes or lesions noted [facility] Medical History Kidney stone Surgical History Omphalocele History of bilateral breast reduction surgery S/P ACL repair Hx of tonsillectomy Family History Mother No problems noted. Father No problems noted. Social History Household Members: Family Housing: House Alcohol intake: current Alcohol intake frequency: a few times a month Alcohol type: hard liquor Patient Tobacco Use Status: Never used Tobacco e-Cigarette/Vaping Use: Never Used Second Hand Smoke Exposure: Yes service: No Current occupational status: employed Current occupational exposures/hazards: No Cognitive needs: No Hearing needs: No Vision needs: Yes Review of Systems Const All systems reviewed & are unremarkable except as noted in HPI and below Physical Exam Vital Signs: Last Vital Signs Temp 97.8 F 12/17/24 09:16 Pulse 86 12/17/24 09:16 BP 152/90 H 12/17/24 09:16 Pulse Ox 98 12/17/24 09:16 Oxygen Delivery Method Room Air 12/17/24 09:16 Oxygen Flow Rate 97.8 12/17/24 09:16 BMI result Body Mass Index 26.8 Assessment & Plan Assessment & Plan (1) Sinusitis: Code(s): J32.9 - Chronic sinusitis, unspecified Qualifiers: Chronicity: acute Recurrence: recurrent Sinusitis location: frontal Qualified Code(s): J01.11 - Acute recurrent frontal sinusitis Plan Most likely sinusitis vs URI vs allergic rhinitis vs flu vs covid Plan - will order a covid/rsv/flu panel - tylenol or motrin as needed - flonase daily - Augmentin BID for 7 days - steam showers - follow up with PCP Orders: Orders SARS-CoV2/FLU/RSV Today R09.89 - Other specified symptoms and signs involving the circulatory and respiratory systems Medications: New amoxicillin-pot clavulanate 875-125 mg 1 tab PO Q12H 14 tabs 0RF 7 days fluticasone propionate 50 mcg/actuation administer into each nostril 1 spray intranasal Q12H 16 grams 0RF Coding Level of Care Code Est Pt Level 3 (85306) Diagnoses Acute recurrent frontal sinusitis J01.11 Chronicity: acute Recurrence: recurrent Sinusitis location: frontal
[2024-12-17 09:16] VITALS: BP 152/90; PULSE 86; TEMP 36.6; O2SAT 98; BMI 26.8
== END 2024-12-17 09:44 | disposition home or self-care (01) ==
PROVIDERS: PCP Internal Medicine; Visit Provider Physician Assistant Medical
DX: J01.11 Acute recurrent frontal sinusitis (principal)

== ENCOUNTER 2024-12-17 09:07 | Outpatient (REF) | payer OTHER, SELFPAY ==
[2024-12-17 11:51] LABS: Resp Syncy Virus RNA Qual PCR NEGATIVE (Negative); SARS COV2 PCR INHOUSE NEGATIVE (Negative)
== END 2024-12-17 09:08 | disposition home or self-care (01) ==
LOC: HO.LNP 09:07
PROVIDERS: PCP Internal Medicine; Visit Provider Physician Assistant Medical
DX: J01.11 Acute recurrent frontal sinusitis (principal); R09.89 Other specified symptoms and signs involving the circulatory and respiratory systems; I10 Essential (primary) hypertension
CPT/HCPCS: 87637